=== PATIENT | female | born 1940 | race Caucasian/White ===

== ENCOUNTER 2017-02-26 00:05 | Inpatient (IN) | payer MEDICARE, OTHER ==
[~2017-02-26] VITALS: Ht 165.1 cm; Wt 99.3 kg
--- NOTE | 2017-02-26 00:05 | NUR ---
VALENTIN WHITFIELD FROM [facility]. PT IS NON AMBULATORY, QATARI SPEAKING, JUST OUT OF THE HOSPITAL ON WEDNESDAY. PT HAS A DIAPER. NO NOTED SKIN BREAKDOWN. PT IS ON 3L O2 VIA NC AND SATURATING AT 98%. PT'S DAUGHTER IS IN THE LOBBY. DR PEÑALOZA IS AT THE BEDSIDE.
--- NOTE | 2017-02-26 00:05 | NUR ---
AA &O X2. REDNESS NOTED ON BILATERAL FEET.
--- NOTE | 2017-02-26 00:10 | NUR ---
XRAY AT THE BEDSIDE.
--- NOTE | 2017-02-26 00:15 | NUR ---
BLOOD DRAW AT THE BEDSIDE. BLOOD CULTURES DRAWN X2.
[2017-02-26] MEDS ORDERED: ASPI81TA2 PO (00:26)
[2017-02-26] MEDS ORDERED: FURO20TA4 PO (00:26)
[2017-02-26] MEDS ORDERED: ATEN25TA PO (00:26)
[2017-02-26] MEDS ORDERED: DOCU-25 PO (00:26)
[2017-02-26] MEDS ORDERED: CALC-838 PO (00:26)
[2017-02-26] MEDS ORDERED: HALO2TAB PO ×2 (00:26)
[2017-02-26] MEDS ORDERED: MEMA1CAP3 PO (00:26)
[2017-02-26] MEDS ORDERED: IRBE150T28 PO (00:26)
[2017-02-26 00:43] LABS: BASOPHILS % (AUTO) 0.3 % (0.0-2.0); EOSINOPHILS # (AUTO) 0.2 /CMM (0.0-0.7); EOSINOPHILS % (AUTO) 1.3 % (0.0-6.0); HEMATOCRIT 38 % (33-45); HEMOGLOBIN 12.5 g/dL (11.5-14.8); LYMPHOCYTES # (AUTO) 4.2 /CMM (0.8-4.8); LYMPHOCYTES % (AUTO) 28.9 % (20.0-44.0); MEAN CORPUSCULAR HEMOGLOBIN 30 PG (26.0-33.0); MEAN CORPUSCULAR HGB CONC 33 g/dl (31.0-36.0); MEAN CORPUSCULAR VOLUME 91 fL (82-100); MONOCYTES # (AUTO) 0.4 /CMM (0.1-1.30); MONOCYTES % (AUTO) 3.1 % (2.0-12.0); NEUTROPHILS # (AUTO) 9.6 /CMM (1.8-8.9); NEUTROPHILS % (AUTO) 66.4 % (43.0-81.0); PLATELET COUNT (AUTO) 284 /CMM (150-450); RDW COEFFICIENT OF VARIATION 14.1 (11.5-15.0); RED BLOOD CELL COUNT(AUTO) 4.19 MIL/uL (4.0-5.2); WHITE BLOOD COUNT (AUTO) 14.5 K/uL (4.3-11.0)
[2017-02-26 00:58] LABS: CALCIUM, SERUM 8.7 mg/dL (8.5-10.1); CARBON DIOXIDE 38 mmol/L (21-32); CHLORIDE 97 mmol/L (98-107); GLUCOSE 91 mg/dL (74-106); POTASSIUM 3.3 mmol/L (3.5-5.1); SODIUM SERUM 139 mmol/L (136-145); UREA NITROGEN, BLOOD 70 mg/dL (7-18)
[2017-02-26 01:04] LABS: TROPONIN I < 0.017 ng/mL (0.00-0.056)
[2017-02-26 01:07] LABS: B-TYPE NATRIURETIC PEPTIDE 115 PG/ML (0-125)
--- NOTE | 2017-02-26 01:15 | NUR ---
REPORT GIVEN TO TEMO HUGO
[2017-02-26] MEDS ORDERED: GENTAMICIN 80 MG in IV D5W 50 ML IV ONE (01:30)
[2017-02-26] MEDS ORDERED: VANCOMYCIN 1 GM in IV D5W 250 ML IV ONE (01:30)
[2017-02-26 01:32] LABS: APPEARANCE,URINE CLOUDY (CLEAR); BILIRUBIN,URINE NEGATIVE (NEGATIVE); BLOOD, URINE 1+ Ery/uL (NEGATIVE); COLOR,URINE YELLOW (YELLOW); KETONES,URINE NEGATIVE (NEGATIVE); LEUKOCYTE ESTERASE ,URINE 1+ (NEGATIVE); NITRITE, URINE NEGATIVE (NEGATIVE); PH,URINE 5.5 (5.0-8.0); PROTEIN,URINE NEGATIVE (NEGATIVE); UGLUCOSE NEGATIVE (NEGATIVE); UROBILINOGEN,URINE 0.2 EU/dL (0.2)
[2017-02-26] MEDS ORDERED: VANCOMYCIN 1 GM VIAL ONE (01:40)
[2017-02-26] MEDS ORDERED: IV SET PRIMARY PUMP SET 1 EA INFUS.SET MC ONE ×2 (01:40→09:08)
[2017-02-26 01:43] LABS: WBC,URINE TOO NUMEROUS TO COUN /HPF (0-3)
[2017-02-26 01:44] LABS: BACTERIA,URINE 3+ /HPF (None Seen); SQUAMOUS EPITHELIAL CELL,UR Moderate /HPF (None Seen)
--- NOTE | 2017-02-26 01:54 | NUR ---
ENDORSING GENTOMYCIN IVPB TO TELE NURSE. ORDERS IN CHART.
[2017-02-26 02:15] VITALS: BP 113/48
--- NOTE | 2017-02-26 02:15 | NUR ---
RN NOTES RECEIVED PATIENT FROM ER FOR DX PNA/UTI. PATIENT AO X 1, ABLE TO MAKE NEEDS KNOWN. DAUGHTER AT BEDSIDE. NO ACUTE DISTRESS NOTED. DENIES PAIN AT THIS TIME. SKIN ASSESSMENT PERFORMED. IV SITE PATENT, INTACT; FLUSHED. WAITING FOR ADMITTING ORDERS. PATIENT ON LOW BED WITH BILATERAL UPPER SIDE RAILS UP. CALL LIGHT WITHIN EASY REACH. WILL CONTINUE TO MONITOR.
[2017-02-26] MEDS ORDERED: GENTAMICIN 80 MG/2 ML VIAL ONE (02:28)
[2017-02-26] MEDS ORDERED: IV D5W 50 ML IV ONE (02:29)
[2017-02-26] MEDS ORDERED: GENTAMICIN 80 MG/2 ML VIAL IV ONE (02:30)
[2017-02-26] MEDS ORDERED: SECONDARY IV SET 1 EA INFUS.SET MC ONE ×2 (02:53→06:27)
[2017-02-26 04:00] VITALS: BP 110/56
[2017-02-26] MEDS ORDERED: DOCUSATE SODIUM 100 MG CAPSULE PO PRN (06:00)
--- NOTE | 2017-02-26 06:18 | NUR ---
RN NOTES PATIENT ASLEEP, EASILY AROUSABLE. RESPIRATIONS EVEN. NO SIGNS OF PAIN NOTED. DUE MEDS GIVEN. NEEDS ATTENDED. SAFETY PRECAUTIONS AND COMFORT MEASURES IN PLACE. WILL GIVE REPORT TO DAY SHIFT FOR CONTINUATION OF CARE.
[2017-02-26] MEDS ORDERED: MEROPENEM 500 MG VIAL IV ONE (06:24)
[2017-02-26] MEDS ORDERED: IV NS 0.9% 50 ML IV ONE (06:27)
[2017-02-26] MEDS ORDERED: ACETAMINOPHEN 325 MG TABLET PO PRN (06:30)
[2017-02-26] MEDS ORDERED: Z GUARD REMEDY 2 OZ OINT TP PRN (06:30)
[2017-02-26] MEDS ORDERED: ALBUTEROL FS 2.5 MG/3 ML VIAL.NEB NEB PRN (06:30)
[2017-02-26] MEDS: MEROPENEM 500 MG in IV NS 0.9% 50 ML IV SCH ×2 (06:38→18:15)
[2017-02-26 06:46] VITALS: BP 112/65
[2017-02-26 07:12] LABS: BASOPHILS % (AUTO) 0.3 % (0.0-2.0); EOSINOPHILS # (AUTO) 0.2 /CMM (0.0-0.7); EOSINOPHILS % (AUTO) 1.6 % (0.0-6.0); HEMATOCRIT 39 % (33-45); HEMOGLOBIN 12.7 g/dL (11.5-14.8); LYMPHOCYTES # (AUTO) 3.8 /CMM (0.8-4.8); LYMPHOCYTES % (AUTO) 28.4 % (20.0-44.0); MEAN CORPUSCULAR HEMOGLOBIN 30 PG (26.0-33.0); MEAN CORPUSCULAR HGB CONC 33 g/dl (31.0-36.0); MEAN CORPUSCULAR VOLUME 92 fL (82-100); MONOCYTES # (AUTO) 0.2 /CMM (0.1-1.30); MONOCYTES % (AUTO) 1.4 % (2.0-12.0); NEUTROPHILS # (AUTO) 9.2 /CMM (1.8-8.9); NEUTROPHILS % (AUTO) 68.3 % (43.0-81.0); PLATELET COUNT (AUTO) 232 /CMM (150-450); RDW COEFFICIENT OF VARIATION 14.2 (11.5-15.0); RED BLOOD CELL COUNT(AUTO) 4.24 MIL/uL (4.0-5.2); WHITE BLOOD COUNT (AUTO) 13.5 K/uL (4.3-11.0)
--- NOTE | 2017-02-26 07:30 | NUR ---
AM RN NOTE Received patient sleeping comfortably in her bed. No SOB noted rep even and non-labored. On tele monitor, SB 50's. IV site intact and patent. Bed in low locked position. Will continue to monitor.
[2017-02-26 07:43] LABS: CALCIUM, SERUM 8.6 mg/dL (8.5-10.1); CARBON DIOXIDE 36 mmol/L (21-32); CHLORIDE 97 mmol/L (98-107); GLUCOSE 92 mg/dL (74-106); POTASSIUM 3.4 mmol/L (3.5-5.1); SODIUM SERUM 139 mmol/L (136-145); UREA NITROGEN, BLOOD 71 mg/dL (7-18)
[2017-02-26 07:45] LABS: CHOLESTEROL 127 mg/dL (<200); HDL CHOLESTEROL 55 mg/dL (40-60); LDL 52 mg/dL (0-99); THYROID STIMULATING HORMONE 0.163 uIU/mL (0.358-3.74); TRIGLYCERIDES 94 mg/dL (30-150)
[2017-02-26 07:49] LABS: ALANINE AMINOTRANSFERASE 29 U/L (12-78); ALBUMIN 2.8 g/dL (3.4-5.0); ALKALINE PHOSPHATASE 75 U/L (46-116); ASPARTATE AMINOTRANSFERASE 25 U/L (15-37); BILIRUBIN,TOTAL 0.7 mg/dL (0.2-1.0); MAGNESIUM 2.2 mg/dL (1.8-2.4); PHOSPHORUS 5.5 mg/dL (2.5-4.9)
[2017-02-26] MEDS: PANTOPRAZOLE 40 MG TABLET.DR PO SCH (08:25)
[2017-02-26] MEDS: DOCUSATE SODIUM 100 MG CAPSULE PO SCH ×2 (08:25→16:25)
[2017-02-26] MEDS: ASPIRIN 81 MG TAB.CHEW PO SCH (08:25)
[2017-02-26] MEDS ORDERED: HALOPERIDOL 1 MG TABLET PO PRN (08:30)
--- NOTE | 2017-02-26 09:13 | NUR ---
AM RN NOTE Called pharmacy and spoke with Minnie awaiting for Kcl IV fluids.
[2017-02-26] MEDS ORDERED: FEE PK DOSING 1 MIN EA MC ONE (09:26)
[2017-02-26 12:00] VITALS: BP 111/58
--- NOTE | 2017-02-26 15:20 | NUR ---
AM RN NOTE Patient IV site noted with leakage, attempted to re-insert unable to insert new site. Notified Dr. Johns with new order for Midline insertion, noted and carried out. ANETA (Jovan) made aware.
[2017-02-26 16:00] VITALS: BP 105/63
--- NOTE | 2017-02-26 17:09 | NUR ---
AM RN NOTE Midline on DESTINY #18 inserted by Aldo.
--- NOTE | 2017-02-26 18:36 | NUR ---
AM RN NOTE Patient lying in her bed, family at bedside. Midline intact and patent. Denies any pain at this time. Will endorse care to next shift.
--- NOTE | 2017-02-26 19:00 | NUR ---
GUNITE MIXER INITIAL NOTE PT RECEIVED IN BED, A/O X 1, IV SITE INTACT WITH NO S/S OF INFILTRATION NOTED. NO S/S OF RESPIRATORY DISTRESS OR SOB. SAFE ENVIRONMENT PROVIDED FREE OF CLUTTERS. BED IN LOCKED, LOW POSITION. CALL LIGHT WITHIN EASY REACH. WILL CONTINUE TO MONITOR
[2017-02-26 20:00] VITALS: BP 93/58
--- NOTE | 2017-02-26 21:04 | NUR ---
Patient resides at the [facility] [phone]. She require assistance with adl's. Bedhold x7days; Current dc plan is to return to SNF upon discharge. Addendum: 02/26/17 at 2104 by AYO JASSO RN Amended: Links added.
[2017-02-26] MEDS: HALOPERIDOL 1 MG TABLET PO SCH (21:24)
[2017-02-27] VITALS: BP 116/54
[2017-02-27] MEDS: VANCOMYCIN 1 GM in IV D5W 250 ML IV SCH (01:40)
[2017-02-27 04:00] VITALS: BP_SYST 106; BP_SYST 109; BP_DIAS 57; BP_DIAS 59
[2017-02-27] MEDS: MEROPENEM 500 MG in IV NS 0.9% 50 ML IV SCH ×2 (05:45→17:32)
--- NOTE | 2017-02-27 06:29 | NUR ---
PROFESSOR OF ENVIRONMENTAL SCIENCE CLOSING NOTES PATIENT COMFORTABLY ASLEEP AND EASILY AWAKEN, HEAD OF BED ELEVATED FOR BETTER LUNG EXPANSION,IV SITE NO S/S OF INFILTRATED, RESPIRATIONS EVEN AND UNLABORED. NO S/S OF ACUTE DISTRESS, NO SOB, NO COUGH, NO CONGESTION, ON 2LPM VIA NC 02 SAT 96% ON ATB WITH NO A/R NOTED. SKIN WARM AND DRY TO TOUCH, AFEBRILE, ALL NURSING CARE NEEDS PROVIDED AND RENDERED, NEEDS ATTENDED AND ANTICIPATED, KEPT CLEAN AND DRY AND COMFORTABLE, BLADDER NOT DISTENDED, GOOD SKIN ARE PROVIDED. ALL DUE MEDS WAS GIVEN TOLERATED. FREQUENT VISUAL CHECK DONE FOR SAFETY EVERY 2 HOURS. REPOSITIONED EVERY 2 HOURS FOR COMFORT AND SKIN MGT. SAFE HAZARD FREE ENVIRONMENT PROVIDED. CALL LIGHT WITHIN EASY TO REACH, ON LOW BED AT ALL TIMES TO ENSURE SAFETY. WILL ENDORSE TO THE NEXT SHIFT CONTINUITY OF CARE
[2017-02-27 06:30] LABS: BASOPHILS % (AUTO) 0.4 % (0.0-2.0); EOSINOPHILS # (AUTO) 0.2 /CMM (0.0-0.7); EOSINOPHILS % (AUTO) 1.6 % (0.0-6.0); HEMATOCRIT 37 % (33-45); HEMOGLOBIN 12.2 g/dL (11.5-14.8); LYMPHOCYTES # (AUTO) 2.4 /CMM (0.8-4.8); LYMPHOCYTES % (AUTO) 20.8 % (20.0-44.0); MEAN CORPUSCULAR HEMOGLOBIN 30 PG (26.0-33.0); MEAN CORPUSCULAR HGB CONC 33 g/dl (31.0-36.0); MEAN CORPUSCULAR VOLUME 92 fL (82-100); MONOCYTES # (AUTO) 0.2 /CMM (0.1-1.30); MONOCYTES % (AUTO) 1.8 % (2.0-12.0); NEUTROPHILS # (AUTO) 8.8 /CMM (1.8-8.9); NEUTROPHILS % (AUTO) 75.4 % (43.0-81.0); PLATELET COUNT (AUTO) 229 /CMM (150-450); RDW COEFFICIENT OF VARIATION 13.8 (11.5-15.0); RED BLOOD CELL COUNT(AUTO) 4.02 MIL/uL (4.0-5.2); WHITE BLOOD COUNT (AUTO) 11.6 K/uL (4.3-11.0)
--- NOTE | 2017-02-27 06:35 | NUR ---
STILL INFUSING TO MIDLINE DESTINY N/S 1/2 WITH KCL 20 MEQ AT 75 MLS/HR TOLERATED WELL.
[2017-02-27 06:40] LABS: APPEARANCE,URINE CLOUDY (CLEAR); BILIRUBIN,URINE NEGATIVE (NEGATIVE); BLOOD, URINE 2+ Ery/uL (NEGATIVE); COLOR,URINE YELLOW (YELLOW); KETONES,URINE NEGATIVE (NEGATIVE); LEUKOCYTE ESTERASE ,URINE 3+ (NEGATIVE); NITRITE, URINE NEGATIVE (NEGATIVE); PH,URINE 5.5 (5.0-8.0); PROTEIN,URINE NEGATIVE (NEGATIVE); UGLUCOSE NEGATIVE (NEGATIVE); UROBILINOGEN,URINE 0.2 EU/dL (0.2)
[2017-02-27 06:56] LABS: CALCIUM, SERUM 8.7 mg/dL (8.5-10.1); CARBON DIOXIDE 37 mmol/L (21-32); CHLORIDE 100 mmol/L (98-107); CREATININE 1.4 mg/dL (0.6-1.3); GLUCOSE 107 mg/dL (74-106); MAGNESIUM 2.2 mg/dL (1.8-2.4); PHOSPHORUS 3.7 mg/dL (2.5-4.9); POTASSIUM 3.8 mmol/L (3.5-5.1); SODIUM SERUM 139 mmol/L (136-145); UREA NITROGEN, BLOOD 62 mg/dL (7-18)
[2017-02-27 07:00] LABS: CREATINE KINASE, TOTAL 33 U/L (26-192)
[2017-02-27 07:05] LABS: CREATININE, URINE 107.7 MG/DL (30.0-125.0); URINE TOTAL PROTEIN 53.4 mg/dL (0-11.9)
[2017-02-27 07:14] LABS: BACTERIA,URINE Few /HPF (None Seen); SQUAMOUS EPITHELIAL CELL,UR Few /HPF (None Seen); WBC,URINE TOO NUMEROUS TO COUN /HPF (0-3)
--- NOTE | 2017-02-27 07:22 | NUR ---
AM RN NOTE Received patient sleeping comfortably in her bed, no acute distress noted. On O2 2L/min via NC. Resp even and non-labored. Midline on DESTINY intact and patent. Bed in low locked position. Will continue to monitor.
[2017-02-27 07:53] LABS: EOSINOPHIL,URINE Few
[2017-02-27 08:00] VITALS: BP 113/63
[2017-02-27] MEDS: DOCUSATE SODIUM 100 MG CAPSULE PO SCH ×2 (08:17→16:23)
[2017-02-27] MEDS: ASPIRIN 81 MG TAB.CHEW PO SCH (08:18)
[2017-02-27] MEDS: PANTOPRAZOLE 40 MG TABLET.DR PO SCH (08:18)
--- NOTE | 2017-02-27 10:27 | NUR ---
AM RN NOTE Patient D/C telemetry and currently on med/surg status per Dr. Seo ([employer] Manager).
[2017-02-27 16:00] VITALS: BP 107/56
[2017-02-27] MEDS: LACTOBACILLUS RHAMNOSUS GG 1 EACH CAP.SPRINK PO SCH (16:23)
--- NOTE | 2017-02-27 18:44 | NUR ---
AM RN NOTE Patient lying in her bed, family @ bedside. Denies any pain or discomfort at this time. Will endorse care to next shift.
--- NOTE | 2017-02-27 19:00 | NUR ---
MS RN INITIAL NOTE PT RECEIVED IN BED SITTING, A/O X 1, FAMILY AT BEDSIDE. IV SITE INTACT WITH NO S/S OF INFILTRATION NOTED. NO S/S OF RESPIRATORY DISTRESS OR SOB. SAFE ENVIRONMENT PROVIDED FREE OF CLUTTERS. BED IN LOCKED, LOW POSITION. CALL LIGHT WITHIN EASY REACH. WILL CONTINUE TO MONITOR.
[2017-02-27 20:00] VITALS: BP 93/57
[2017-02-27] MEDS: HALOPERIDOL 1 MG TABLET PO SCH (21:10)
[2017-02-28] MEDS: VANCOMYCIN 1 GM in IV D5W 250 ML IV SCH (00:14)
[2017-02-28] MEDS: MEROPENEM 500 MG in IV NS 0.9% 50 ML IV SCH (05:40)
--- NOTE | 2017-02-28 06:45 | NUR ---
MS RN CLOSING NOTES PATIENT COMFORTABLY ASLEEP AND EASILY AWAKEN, ON ATB WITH NO A/R NOTED. IV SITE NO S/S OF INFILTRATED, MIDLINE DESTINY ON 09/28 NS WITH 20 MEQ KCL RUNNING AT 75 MLS/HR TOLERATED WELL. PATIENT DENIES PAIN AT THIS TIME.RESPIRATIONS EVEN AND UNLABORED. NO S/S OF ACUTE DISTRESS, NO SOB, NO COUGH, NO CONGESTION, SKIN WARM AND DRY TO TOUCH, AFEBRILE, ALL NURSING CARE NEEDS PROVIDED AND RENDERED, NEEDS ATTENDED AND ANTICIPATED, KEPT CLEAN AND DRY AND COMFORTABLE, BLADDER NOT DISTENDED, GOOD SKIN ARE PROVIDED. ABDOMEN SOFT AND NON TENDER. ALL DUE MEDS WAS GIVEN TOLERATED. FREQUENT VISUAL CHECK DONE FOR SAFETY EVERY 2 HOURS. REPOSITIONED EVERY 2 HOURS FOR COMFORT AND SKIN MGT. SAFE HAZARD FREE ENVIRONMENT PROVIDED. CALL LIGHT WITHIN EASY TO REACH, ON LOW BED AT ALL TIMES TO ENSURE SAFETY, WILL ENDORSE TO THE NEXT SHIFT CONTINUE PLAN OF CARE.
[2017-02-28 07:23] LABS: CALCIUM, SERUM 8.7 mg/dL (8.5-10.1); CARBON DIOXIDE 37 mmol/L (21-32); CHLORIDE 99 mmol/L (98-107); CREATININE 1.3 mg/dL (0.6-1.3); GLUCOSE 97 mg/dL (74-106); MAGNESIUM 2.4 mg/dL (1.8-2.4); PHOSPHORUS 3.2 mg/dL (2.5-4.9); POTASSIUM 4.2 mmol/L (3.5-5.1); SODIUM SERUM 140 mmol/L (136-145); UREA NITROGEN, BLOOD 51 mg/dL (7-18)
--- NOTE | 2017-02-28 07:30 | NUR ---
AM RN NOTE Received patient sleeping comfortably in her bed, On O2 2L/min via NC. Resp even and non-labored. Midline intact and patent on DESTINY. Bed in low locked position. Will continue to monitor.
[2017-02-28 07:51] LABS: BASOPHILS % (AUTO) 0.2 % (0.0-2.0); EOSINOPHILS # (AUTO) 0.2 /CMM (0.0-0.7); EOSINOPHILS % (AUTO) 2.2 % (0.0-6.0); HEMATOCRIT 36 % (33-45); HEMOGLOBIN 11.9 g/dL (11.5-14.8); LYMPHOCYTES # (AUTO) 2.6 /CMM (0.8-4.8); MEAN CORPUSCULAR HEMOGLOBIN 30 PG (26.0-33.0); MEAN CORPUSCULAR HGB CONC 33 g/dl (31.0-36.0); MEAN CORPUSCULAR VOLUME 92 fL (82-100); MONOCYTES # (AUTO) 0.9 /CMM (0.1-1.30); MONOCYTES % (AUTO) 8.7 % (2.0-12.0); NEUTROPHILS # (AUTO) 7.2 /CMM (1.8-8.9); NEUTROPHILS % (AUTO) 64.9 % (43.0-81.0); PLATELET COUNT (AUTO) 215 /CMM (150-450); RDW COEFFICIENT OF VARIATION 13.4 (11.5-15.0); RED BLOOD CELL COUNT(AUTO) 3.95 MIL/uL (4.0-5.2); WHITE BLOOD COUNT (AUTO) 10.9 K/uL (4.3-11.0)
[2017-02-28 08:00] VITALS: BP 129/81
[2017-02-28] MEDS: ASPIRIN 81 MG TAB.CHEW PO SCH (08:33)
[2017-02-28] MEDS: LACTOBACILLUS RHAMNOSUS GG 1 EACH CAP.SPRINK PO SCH (08:33)
[2017-02-28] MEDS: DOCUSATE SODIUM 100 MG CAPSULE PO SCH (08:33)
[2017-02-28] MEDS ORDERED: LEVO750T21 PO (09:47)
--- NOTE | 2017-02-28 11:22 | NUR ---
AM RN NOTE Discharge order given by Dr. Johns to [facility]. Daughter (Miryam) & Spouse at bedside, made aware about discharge order and family spoke with Dr. Johns @ bedside. Called [facility] and spoke with Izabela (RN) report given on pt. Skin pictures taken and placed in chart. Pt denies any pain or discomfort at this time. Will continue to monitor. P/U time @ 1400 by ambulance.
--- NOTE | 2017-02-28 13:40 | NUR ---
AM RN NOTE Patient lying in her bed, no acute distress noted. Discharge instructions on medications and teachings given to pt and daughter (Miryam) and discharge paperwork signed by daughter. Pt with no personal belongings. Awaiting for ambulance.
--- NOTE | 2017-02-28 14:30 | NUR ---
AM RN NOTE Patient awake, A/O X1 denies any pain or discomfort at this time. Report given to EMT's and V/S stable taken by EMT's. Midline discontinued as ordered per Dr. Johns. ID band removed. Pt discharged/ left unit via gurney at this time as accompanied by 2 EMT's and family (Spouse, daughter and son).
[2017-02-28] MEDS ORDERED: Z GUARD REMEDY 2 OZ OINT TP PRN (18:30)
[2017-03-01 10:15] LABS: *SPE A/G RATIO 0.8 (0.7-1.7); *SPE ALBUMIN 2.6 g/dL (2.9-4.4); *SPE ALPHA-1-GLOBULIN 0.3 g/dL (0.0-0.4); *SPE ALPHA-2-GLOBULIN 0.9 g/dL (0.4-1.0); *SPE GLOBULIN, TOTAL 3.2 g/dL (2.2-3.9); *SPE M-SPIKE Not Observed g/dL (Not Observed); *SPE PROTEIN TOTAL 5.8 g/dL (6.0-8.5)
[2017-03-02 14:17] LABS: PTH, INTACT 41 pg/mL (15-65)
== END 2017-02-28 14:30 | DRG 177 ==
LOC: ER 00:11 → TELE 01:53 → MED 02-27 09:51
PROVIDERS: ADMIT Internal Medicine; ATTEND Internal Medicine
PROC: 05H533Z Insertion of Infusion Device into Right Subclavian Vein, Percutaneous Approach (ICD-10-PCS; principal; 2017-02-27)
DX: J69.0 Pneumonitis due to inhalation of food and vomit (principal); N17.0 Acute kidney failure with tubular necrosis; G93.41 Metabolic encephalopathy; N39.0 Urinary tract infection, site not specified; I13.0 Hypertensive heart and chronic kidney disease with heart failure and stage 1 through stage 4 chronic kidney disease, or unspecified chronic kidney disease; J90 Pleural effusion, not elsewhere classified; I50.32 Chronic diastolic (congestive) heart failure; J15.9 Unspecified bacterial pneumonia; B96.20 Unspecified Escherichia coli [E. coli] as the cause of diseases classified elsewhere; E78.5 Hyperlipidemia, unspecified; F02.80 Dementia in other diseases classified elsewhere, unspecified severity, without behavioral disturbance, psychotic disturbance, mood disturbance, and anxiety; G30.9 Alzheimer's disease, unspecified; M81.0 Age-related osteoporosis without current pathological fracture; Z91.81 History of falling; N18.9 Chronic kidney disease, unspecified; L98.8 Other specified disorders of the skin and subcutaneous tissue; B00.9 Herpesviral infection, unspecified; B96.1 Klebsiella pneumoniae [K. pneumoniae] as the cause of diseases classified elsewhere; F31.9 Bipolar disorder, unspecified
CPT/HCPCS: 36415; 36569; 71010-TC; 80048-TC; 80053-TC; 80061-TC; 81000-TC; 82550-TC; 82570-TC; 83605-TC; 83735-TC; 83880; 83970; 84100-TC; 84155; 84155-TC; 84165; 84300-TC; 84443-TC; 84484-TC; 85025-TC; 87040-TC; 87086-TC; 87186-TC; 94799-TC; 97001-TC; 97003-TC; A4216; A4606; J1580; J2185; J3370; J3480; J3490; J7060; Z7610